=== PATIENT | male | born 1965 | race Caucasian/White ===

== ENCOUNTER 2018-03-14 20:25 | Inpatient (IN) | payer MEDICAID ==
[~2018-03-14] VITALS: Ht 160 cm; Wt 93.4 kg
[2018-03-14 21:20] LABS: BASOPHIL % 0.3 % (0-2); PLATELET COUNT 262 x10^3mcL (130-400); RED CELL DISTRIBUTION WIDTH 13.4 % (11.5-14.5)
[2018-03-14 21:33] LABS: CALCIUM 8.8 mg/dL (8.5-10.1); CARBON DIOXIDE 24.2 mmol/L (21-32); POTASSIUM SERUM 4.9 mmol/L (3.5-5.1)
[2018-03-14 22:00] LABS: BILIRUBIN TOTAL 0.6 mg/dL (0.20-1.00)
[2018-03-14 22:04] LABS: TOTAL PROTEIN, SERUM 8.3 g/dL (6.4-8.2)
[2018-03-14 23:59] LABS: UA SPECIFIC GRAVITY >=1.030 (1.005-1.035); microscopic required? YES; urine erythrocyte NEGATIVE (NEGATIVE)
[2018-03-15] MEDS ORDERED: GLUCOTROL10 MG PO (01:07)
[2018-03-15] MEDS ORDERED: LISINOPRIL40 MG PO (01:07)
[2018-03-15] MEDS ORDERED: ASPIR 8181 MG PO (01:07)
[2018-03-15 02:22] LABS: T3 TOTAL 1.24 ng/mL
[2018-03-15 02:27] LABS: CHOLESTEROL/HDL RATIO 3.9; PHOSPHOROUS 5.3 mg/dL (2.5-4.9)
[2018-03-15 03:13] VITALS: BP 132/48
[2018-03-15 03:35] LABS: FREE T4 1.2 ng/dL (0.76-1.46); FREE THYROXINE INDEX 2.1 ug/dL (1.4-4.5); T4(THYROXINE) 6.3 ug/dL (4.7-13.3)
[2018-03-15 05:37] VITALS: BP 129/63
[2018-03-15 08:53] VITALS: BP 138/68
[2018-03-15 13:08] VITALS: BP 146/66
[2018-03-15 14:58] LABS: AMPHETAMINE QUAL UR NONE DETECTED (See below)
[2018-03-15 17:03] VITALS: BP 148/70
[2018-03-15 17:37] VITALS: BP 148/70
== END 2018-03-15 18:37 | disposition home or self-care (01) | DRG 469 ==
LOC: ED 20:25 → DU 03-15 01:01
PROVIDERS: Emergency Medicine; Internal Medicine
DX: N17.9 Acute kidney failure, unspecified (principal); E11.65 Type 2 diabetes mellitus with hyperglycemia; R25.2 Cramp and spasm; Z79.82 Long term (current) use of aspirin
CPT/HCPCS: 83880; 84439; J3475; J7030

== ENCOUNTER 2020-01-01 21:06 | Emergency (ER) | payer MEDICAID ==
[~2020-01-01] VITALS: Ht 157.5 cm; Wt 91.6 kg
[~2020-01-01 21:06] MED LIST: ASPIR 8181 MG PO; GLUCOTROL10 MG PO; LISINOPRIL40 MG PO
[2020-01-01 22:51] VITALS: BP 171/96
== END 2020-01-01 22:51 | disposition home or self-care (01) ==
LOC: ED 21:06
DX: E11.40 Type 2 diabetes mellitus with diabetic neuropathy, unspecified (principal); I10 Essential (primary) hypertension
CPT/HCPCS: 82962; J1885; J7030